=== PATIENT | female | born 1955 | race Caucasian/White ===

== ENCOUNTER 2018-09-05 15:18 | Emergency (ER) | payer BC ==
[2018-09-05] MEDS ORDERED: NS 0.9% 1000 ML** 1,000 ML IV ONE ×2 (17:15→18:18)
[2018-09-05 17:37] LABS: Urine Appearance Cloudy; Urine Bacteria Absent (Absent); Urine Bilirubin Negative (Negative); Urine Blood Negative (Negative); Urine Color Yellow; Urine Glucose Negative (Negative); Urine Ketones Negative (Negative); Urine Nitrite Negative (Negative); Urine Protein Negative (Negative); Urine Red Blood Cell Trace(0-2/hpf) (Absent); Urine Specific Gravity 1.008 (1.010-1.030); Urine Squamous Epithelial Cell Present (Absent); Urine Urobilinogen Negative (Negative); Urine White Blood Cell Trace(0-5/hpf) (Absent)
[2018-09-05 17:39] LABS: ABS Basophils 0.1 10^3/ul (0-0.2); ABS Eosinophils 0.1 10^3/ul (0-0.6); ABS Lymphocytes 1.7 10^3/ul (1.0-4.8); ABS Monocytes 0.7 10^3/ul (0-0.8); ABS Neutrophils 6.8 10^3/ul (1.5-7.7); ABS Nucleated RBC 0 10^3/ul; Eosinophil % 1.5 %; Hematocrit 35 % (33-41); Hemoglobin 11.9 g/dL (12.0-16.0); Lymphocyte % 17.6 %; Mean Corpuscular HGB Conc 34 g/dL (31-36); Mean Corpuscular Hemoglobin 32 pg (27-31); Mean Corpuscular Volume 92 fL (80-97); Mean Platelet Volume 7.6 fL (7.4-10.4); Nucleated Red Blood Cells % 0; Platelet Count 254 10^3/uL (150-450); Red Blood Count 3.75 10^6 /uL (3.70-4.87); Red Cell Distribution Width 14 % (10.5-15); White Blood Count 9.4 10^3/uL (3.5-10.8)
--- NOTE | 2018-09-05 17:39 | ED ---
GI/ HPI - HPI Summary HPI Summary: 62 year female presents with left upper quadrant pain for the past couple days. States she had a recent change in diet but then she started brat diet yesterday. With the diet change there was no improvement. she states that she has had sharp pain that radiates from left upper quadrant to her back. She denies any flank pain. No urinary symptoms. She admits to nausea but no vomiting. She tried some famotidine and had no relief of pain. She denies any dark or tarry stool or blood in her stool. She states her stools have been softer since changing her diet. she has never had this pain before. Denies any chest pain or shortness of breath. She's had a colon resection for colon cancer. She also had her appendix removed. has history of bradycardia. - History of Current Complaint Chief Complaint: EDAbdPain Time Seen by Provider: 09/05/18 16:41 Stated Complaint: ABD AND BACK PAIN PER PT Pain Intensity: 5 - Allergy/Home Medications Allergies/Adverse Reactions: Allergies Allergy/AdvReac Type Severity Reaction Status Date / Time adalimumab [From Humira] Allergy Hives/Diff. Verified 09/05/18 15:32 Breathing/I tching amlodipine Allergy Coughing Verified 09/05/18 15:32 atenolol Allergy Palpitation Verified 09/05/18 15:32 s atorvastatin Allergy Pain Verified 09/05/18 15:32 budesonide [From Symbicort] Allergy Coughing Verified 09/05/18 15:32 bupropion [From Wellbutrin] Allergy Palpitation Verified 09/05/18 15:32 s buspirone Allergy Altered Verified 09/05/18 15:32 Mental Status diltiazem [From Cardizem] Allergy Swelling Verified 09/05/18 15:32 formoterol [From Symbicort] Allergy Coughing Verified 09/05/18 15:32 furosemide [From Lasix] Allergy Unknown Verified 09/05/18 15:32 Reaction Details hydroxychloroquine Allergy Palpitation Verified 09/05/18 15:32 [From Plaquenil] s lisinopril Allergy Coughing Verified 09/05/18 15:32 metoprolol Allergy Palpitation Verified 09/05/18 15:32 s morphine Allergy Swelling Verified 09/05/18 15:32 moxifloxacin [From Avelox] Allergy Swelling Verified 09/05/18 15:32 omeprazole Allergy Pain Verified 09/05/18 15:32 rivaroxaban [From Xarelto] Allergy Unknown Verified 09/05/18 15:32 Reaction Details valsartan Allergy Unknown Verified 09/05/18 15:32 Reaction Details beta blockers Allergy Hives Uncoded 09/05/18 15:32 PMH/Surg Hx/FS Hx/Imm Hx Endocrine/Hematology History: Denies: Hx Anticoagulant Therapy Respiratory History: Reports: Hx Asthma Musculoskeletal History: Reports: Hx Rheumatoid Arthritis Infectious Disease History: No Infectious Disease History: Denies: Traveled Outside the [place] in Last 30 Days - Family History Known Family History: Positive: Hypertension - Social History Alcohol Use: None Substance Use Type: Reports: None Smoking Status (MU): Never Smoked Tobacco Review of Systems Negative: Fever Negative: Chest Pain Negative: Shortness Of Breath Positive: Abdominal Pain. Negative: Vomiting, Diarrhea, Nausea All Other Systems Reviewed And Are Negative: Yes Physical Exam Triage Information Reviewed: Yes Vital Signs On Initial Exam: Initial Vitals Temp Pulse Resp BP Pulse Ox 98.7 F 56 20 147/72 99 09/05/18 15:20 09/05/18 15:20 09/05/18 15:20 09/05/18 15:20 09/05/18 15:20 Vital Signs Reviewed: Yes Appearance: Positive: Well-Appearing Skin: Positive: Warm, Dry Head/Face: Positive: Normal Head/Face Inspection Eyes: Positive: Normal, Conjunctiva Clear ENT: Positive: Pharynx normal Respiratory/Lung Sounds: Positive: Clear to Auscultation, Breath Sounds Present Cardiovascular: Positive: Normal, RRR Abdomen Description: Positive: Soft, Other: - tenderness LUQ Bowel Sounds: Positive: Present Musculoskeletal: Positive: Normal Neurological: Positive: Normal Psychiatric: Positive: Normal Diagnostics - Vital Signs Vital Signs Temp Pulse Resp BP Pulse Ox 09/05/18 16:51 58 136/75 97 09/05/18 16:50 57 98 09/05/18 15:20 98.7 F 56 20 147/72 99 - Laboratory Lab Results: Lab Results 09/05/18 Range/Units 17:27 Urine Color Yellow Urine Appearance Cloudy Urine pH 6.0 (5-9) Ur Specific [place] 1.008 L (1.010-1.030) Urine Protein Negative (Negative) Urine Ketones Negative (Negative) Urine Blood Negative (Negative) Urine Nitrate Negative (Negative) Urine Bilirubin Negative (Negative) Urine Urobilinogen Negative (Negative) Ur Leukocyte Esterase Trace A (Negative) Urine WBC (Auto) Trace(0-5/hpf) (Absent) Urine RBC (Auto) Trace(0-2/hpf) (Absent) Ur Squamous Epith Cells Present A (Absent) Urine Bacteria Absent (Absent) Urine Glucose Negative (Negative) Result Diagrams: 09/05/18 17:30 09/05/18 17:30 Lab Statement: Any lab studies that have been ordered have been reviewed, and results considered in the medical decision making process. - CT abd CT Interpretation Completed By: Radiologist Summary of CT Findings: IMPRESSION: No evidence of acute intra-abdominal pathology. - EKG No standard instances Cardiac Rate: Bradycardia EKG Rhythm: Sinus Bradycardia Summary of EKG Findings: sinus bradycardia Re-Evaluation - Re-Evaluation First Eval Re-Evaluation Time: 20:01 Change: Improved Comment: discussed results, patient just stopped metrotrexate which may have caused a gastritis GIGU Course/Dx - Course Course Of Treatment: 62 year female presents with left upper quadrant pain for the past couple days. States she had a recent change in diet but then she started brat diet yesterday. With the diet change there was no improvement. she states that she has had sharp pain that radiates from left upper quadrant to her back. She denies any flank pain. No urinary symptoms. She admits to nausea but no vomiting. She tried some famotidine and had no relief of pain. She denies any dark or tarry stool or blood in her stool. She states her stools have been softer since changing her diet. she has never had this pain before. Denies any chest pain or shortness of breath. She's had a colon resection for colon cancer. She also had her appendix removed. On exam has tenderness epigastric. No rebound. wbc normal. crp normal. sodium and cloride low so gave fluids. urine likely contaminant. CT shows no acute finding. discussed likely has gastritis due to methotrexate such. told to continue zantac daily as patient does not want to do ompreazole. offered to add on carafate and patient declined. told to follow up with GI. patient understand and agrees with plan. - Diagnoses Differential Diagnoses - Female: Gall Bladder Disease, Gastritis, Gastroenteritis (Viral), Pyelonephritis Provider Diagnoses: Epigastric pain Discharge - Sign-Out/Discharge Documenting (check all that apply): Patient Departure Patient Received Moderate/Deep Sedation with Procedure: No - Discharge Plan Condition: Good Disposition: HOME Patient Education Materials: Diet for Stomach Ulcers and Gastritis (ED), Epigastric Pain (ED) Referrals: Pola Vargas DO [Doctor of Osteopathy] - Ino Eubanks DO [Primary Care Provider] - Additional Instructions: continue zantac twice a day Avoid acidic foods Stay upright for at least 30 mins after eating Follow up with GI Return to ED if develop any new or worsening symptoms - Billing Disposition and Condition Condition: GOOD Disposition: Home
[2018-09-05 17:53] LABS: Albumin 4.4 g/dL (3.2-5.2); Albumin/Globulin Ratio 1.6 (1-3); BUN/Creatinine Ratio 19.2 (8-20); C Reactive Protein 2.85 mg/L (<8.01); Calcium 9.3 mg/dL (8.6-10.3); EGFR African American 64.8 (>60); EGFR Non-African American 53.5 (>60); Globulin 2.7 g/dL (2-4); Potassium 4.4 mmol/L (3.5-5.0); Total Bilirubin 0.7 mg/dL (0.2-1.0); Total Protein 7.1 g/dL (6.4-8.9)
[2018-09-05] MEDS ORDERED: Iodixanol* (CONTRAST) 320 MG/ML 100 ML SDV IV ONE (18:05)
[2018-09-05 20:33] VITALS: BP 135/81
== END 2018-09-05 20:31 | disposition home or self-care (01) ==
LOC: ED 15:18 → MERGE 15:18 → ED 20:31
DX: R10.13 Epigastric pain (principal); R11.0 Nausea; R00.1 Bradycardia, unspecified; Z85.038 Personal history of other malignant neoplasm of large intestine; Z88.5 Allergy status to narcotic agent; Z88.8 Allergy status to other drugs, medicaments and biological substances
CPT/HCPCS: 36415; 74177; 80053; 81003; 81015; 82150; 83605; 83690; 83735; 84484; 85025; 86140; 87086; 93005; 96360; 96361; 99282; Q9967

== ENCOUNTER 2018-09-16 21:41 | Emergency (ER) | payer BC ==
[2018-09-16 22:32] LABS: Urine Appearance Cloudy; Urine Bacteria Absent (Absent); Urine Bilirubin Negative (Negative); Urine Blood 1+ (Negative); Urine Color Yellow; Urine Glucose Negative (Negative); Urine Ketones Negative (Negative); Urine Nitrite Negative (Negative); Urine Protein Negative (Negative); Urine Red Blood Cell Trace(0-2/hpf) (Absent); Urine Specific Gravity 1.011 (1.010-1.030); Urine Squamous Epithelial Cell Present (Absent); Urine Urobilinogen Negative (Negative); Urine White Blood Cell Trace(0-5/hpf) (Absent)
--- NOTE | 2018-09-16 23:18 | ED ---
Skin Complaint - HPI Summary HPI Summary: Patient complains of burn on back after falling asleep on heating pad, and urinary frequency and incontinence. States history of urinary incontinence, has been seen by urology and advised to do Kegel exercises, but has not done them in a while. Denies fever, cough, sore throat, CP, SOB, N/V/D, abdominal pain, change in BM. Medical history is colon cancer in remission, HTN, thyroid , RA, ostial, A. fib on anticoagulation. - History of Current Complaint Chief Complaint: EDGeneral Time Seen by Provider: 09/16/18 22:09 Stated Complaint: BACK BURN/OOZING PER PT Hx Obtained From: Patient Onset/Duration: Started Days Ago Skin Exposure Onset/Duration: Days Ago Onset Severity: Mild Current Severity: Mild Pain Intensity: 3 Pain Scale Used: 0-10 Numeric Skin Location: Discrete Aggravating Symptom(s): Touch Alleviating Symptom(s): Nothing Associated Signs & Symptoms: Negative - Allergy/Home Medications Allergies/Adverse Reactions: Allergies Allergy/AdvReac Type Severity Reaction Status Date / Time adalimumab [From Humira] Allergy Hives/Diff. Verified 09/16/18 22:13 Breathing/I tching amlodipine Allergy Coughing Verified 09/16/18 22:13 atenolol Allergy Palpitation Verified 09/16/18 22:13 s atorvastatin Allergy Pain Verified 09/16/18 22:13 budesonide [From Symbicort] Allergy Coughing Verified 09/16/18 22:13 bupropion [From Wellbutrin] Allergy Palpitation Verified 09/16/18 22:13 s buspirone Allergy Altered Verified 09/16/18 22:13 Mental Status diltiazem [From Cardizem] Allergy Swelling Verified 09/16/18 22:13 formoterol [From Symbicort] Allergy Coughing Verified 09/16/18 22:13 furosemide [From Lasix] Allergy Unknown Verified 09/16/18 22:13 Reaction Details hydroxychloroquine Allergy Palpitation Verified 09/16/18 22:13 [From Plaquenil] s lisinopril Allergy Coughing Verified 09/16/18 22:13 metoprolol Allergy Palpitation Verified 09/16/18 22:13 s morphine Allergy Swelling Verified 09/16/18 22:13 moxifloxacin [From Avelox] Allergy Swelling Verified 09/16/18 22:13 omeprazole Allergy Pain Verified 09/16/18 22:13 rivaroxaban [From Xarelto] Allergy Unknown Verified 09/16/18 22:13 Reaction Details valsartan Allergy Unknown Verified 09/16/18 22:13 Reaction Details beta blockers Allergy Hives Uncoded 09/16/18 22:13 Home Medications: Home Medications Apixaban* [Eliquis*] 5 mg PO BID 09/16/18 [History Confirmed 09/16/18] Budesonide/Formote 160/4.5(NF) [Symbicort 160/4.5 (NF)] 2 puff INH BID 09/16/18 [History Confirmed 09/16/18] Dronedarone HCl [Multaq] 400 mg PO BID 09/16/18 [History Confirmed 09/16/18] Golimumab [Simponi] 50 mg SUBCUT MONTHLY 09/16/18 [History Confirmed 09/16/18] Levothyroxine TAB* [Synthroid TAB*] 175 mcg PO DAILY 09/16/18 [History Confirmed 09/16/18] Montelukast Sodium TAB* [Singulair TAB*] 10 mg PO BEDTIME 09/16/18 [History Confirmed 09/16/18] Olmesartan Medoxomil [Benicar] 5 mg PO DAILY 09/16/18 [History Confirmed ] Omeprazole 40 mg PO BID 09/16/18 [History Confirmed 09/16/18] Pravastatin Sodium 20 mg PO DAILY 09/16/18 [History Confirmed 09/16/18] Spironolactone 50 mg PO DAILY 09/16/18 [History Confirmed 09/16/18] cloNIDine HCl [Clonidine HCl ER 0.1 MG] 0.1 mg PO DAILY 09/16/18 [History Confirmed 09/16/18] PMH/Surg Hx/FS Hx/Imm Hx Endocrine/Hematology History: Denies: Hx Anticoagulant Therapy, Hx Diabetes Cardiovascular History: Denies: Hx Hypertension, Hx Pacemaker/ICD Respiratory History: Reports: Hx Asthma History: Denies: Hx Dialysis Musculoskeletal History: Reports: Hx Rheumatoid Arthritis Sensory History: Denies: Hx Eye Prosthesis Opthamlomology History: Denies: Hx Legally Blind EENT History: Denies: Hx Deafness Neurological History: Denies: Hx Dementia Psychiatric History: Denies: Hx Autism - Cancer History Cancer Type, Location and Year: COLON - Surgical History Surgery Procedure, Year, and Place: colon resection, total left hip, total right knee - Immunization History Date of Tetanus Vaccine: utd Date of Influenza Vaccine: fall 2017 Infectious Disease History: No Infectious Disease History: Denies: Traveled Outside the [place] in Last 30 Days - Family History Known Family History: Positive: Hypertension - Social History Alcohol Use: None Substance Use Type: Reports: None Smoking Status (MU): Never Smoked Tobacco Review of Systems Constitutional: Negative Eyes: Negative ENT: Negative Cardiovascular: Negative Respiratory: Negative Gastrointestinal: Negative Positive: frequency, incontinence Musculoskeletal: Negative Skin: Other Neurological: Negative Psychological: Normal All Other Systems Reviewed And Are Negative: Yes Physical Exam - Summary Physical Exam Summary: Superficial burn in central upper back 3 cm x 3 cm clean dry and intact with mild erythema at the edges. No indication of infection, purulent drainage. Triage Information Reviewed: Yes Vital Signs On Initial Exam: Initial Vitals Temp Pulse Resp BP Pulse Ox 98.3 F 58 16 127/67 100 09/16/18 21:42 09/16/18 21:42 09/16/18 21:42 09/16/18 21:42 09/16/18 21:42 Vital Signs Reviewed: Yes Appearance: Positive: Well-Appearing Skin: Positive: Warm Head/Face: Positive: Normal Head/Face Inspection Eyes: Positive: Normal Neck: Positive: Supple Respiratory/Lung Sounds: Positive: Clear to Auscultation Cardiovascular: Positive: Normal Abdomen Description: Positive: Nontender Musculoskeletal: Positive: Normal Neurological: Positive: Normal Psychiatric: Positive: Normal AVPU Assessment: Alert - Kendal Coma Scale Best Eye Response: 4 - Spontaneous Best Motor Response: 6 - Obeys Commands Best Verbal Response: 5 - Oriented Coma Scale Total: 15 Diagnostics - Vital Signs Vital Signs Temp Pulse Resp BP Pulse Ox 09/16/18 21:42 98.3 F 58 16 127/67 100 - Laboratory Lab Results: Lab Results 09/16/18 Range/Units 22:18 Urine Color Yellow Urine Appearance Cloudy Urine pH 5.0 (5-9) Ur Specific [place] 1.011 (1.010-1.030) Urine Protein Negative (Negative) Urine Ketones Negative (Negative) Urine Blood 1+ A (Negative) Urine Nitrate Negative (Negative) Urine Bilirubin Negative (Negative) Urine Urobilinogen Negative (Negative) Ur Leukocyte Esterase Negative (Negative) Urine WBC (Auto) Trace(0-5/hpf) (Absent) Urine RBC (Auto) Trace(0-2/hpf) (Absent) Ur Squamous Epith Cells Present A (Absent) Urine Bacteria Absent (Absent) Urine Glucose Negative (Negative) Lab Statement: Any lab studies that have been ordered have been reviewed, and results considered in the medical decision making process. Course/Dx - Course Course Of Treatment: Patient complains of burn on back after falling asleep on heating pad, and urinary frequency and incontinence. States history of urinary incontinence, has been seen by urology and advised to do Kegel exercises, but has not done them in a while. Denies fever, cough, sore throat, CP, SOB, N/V/D , abdominal pain, change in BM. Medical history is colon cancer in remission, HTN, thyroid, RA, ostial, A. fib on anticoagulation. Physical exam:Superficial burn in central upper back 3 cm x 3 cm clean dry and intact with mild erythema at the edges. No indication of infection, purulent drainage. Vital signs within normal limits. UA negative. Wound was dressed and patient was advised how to do so for herself. Patient advised to follow-up with Dr. Walker urology for stress incontinence. - Diagnoses Provider Diagnoses: Burn, Stress incontinence Discharge - Sign-Out/Discharge Documenting (check all that apply): Patient Departure Patient Received Moderate/Deep Sedation with Procedure: No - Discharge Plan Condition: Stable Disposition: HOME Patient Education Materials: Urinary Incontinence (ED), Kegel Exercises for Women (DC), Superficial Burn (ED) Referrals: Ino Eubanks DO [Primary Care Provider] - Justin Walker MD [Medical Doctor] - Additional Instructions: Place antibiotic ointment and nonstick pad on burn daily. Keep clean and dry and intact until it heals. For stress incontinence follow-up with urology Dr. Walker for further evaluation. Return to the ED for any new or worsening symptoms. - Billing Disposition and Condition Condition: STABLE Disposition: Home
[2018-09-16 23:34] VITALS: BP 125/75
== END 2018-09-16 23:32 | disposition home or self-care (01) ==
LOC: ED 21:41
DX: T21.03XA Burn of unspecified degree of upper back, initial encounter (principal); T31.0 Burns involving less than 10% of body surface; Y65.8 Other specified misadventures during surgical and medical care; Y74.1 Therapeutic (nonsurgical) and rehabilitative general hospital and personal-use devices associated with adverse incidents; Y92.019 Unspecified place in single-family (private) house as the place of occurrence of the external cause; N39.3 Stress incontinence (female) (male); I10 Essential (primary) hypertension; M06.9 Rheumatoid arthritis, unspecified; I48.91 Unspecified atrial fibrillation; Z79.01 Long term (current) use of anticoagulants
CPT/HCPCS: 16020; 81003; 81015; 87086; 99282

== ENCOUNTER 2019-04-02 14:55 | Emergency (ER) | payer BC ==
--- NOTE | 2019-04-02 15:41 | ED ---
GI/ HPI - HPI Summary HPI Summary: Patient complains of sudden onset profuse vaginal bleeding 1 today. States blood was dark brown.. Mild bleeding currently. States history of intermittent bilateral lower pelvic pain 1 month. Pain was worse with bleeding today. Denies fever, cough, sore throat, CP, SOB, N/V/D, change in urine, change in BM, vaginal discharge or pain. Medical history is fibroids, A. fib. Patient on Eliquis. Abdominal surgical history is D&C, appendectomy. - History of Current Complaint Chief Complaint: EDVaginalBleeding Time Seen by Provider: 04/02/19 15:04 Stated Complaint: VAGINAL BLEED PER EMS Hx Obtained From: Patient Onset/Duration: Started Hours Ago Timing: Intermittent Severity: Moderate Current Severity: Severe Vaginal Bleeding Description: Brownish-Red Pain Intensity: 10 Location of Pain: RLQ, LLQ, Suprapubic Pain Characteristics: Cramping Associated Signs and Symptoms: Positive: Abdominal Pain Additional Signs & Symptoms: Positive: Vaginal Bleeding Aggravating Factor(s): Nothing Alleviating Factor(s): Nothing - Allergy/Home Medications Allergies/Adverse Reactions: Allergies Allergy/AdvReac Type Severity Reaction Status Date / Time adalimumab [From Humira] Allergy Hives/Diff. Verified 09/16/18 22:13 Breathing/I tching amlodipine Allergy Coughing Verified 09/16/18 22:13 atenolol Allergy Palpitation Verified 09/16/18 22:13 s atorvastatin Allergy Pain Verified 09/16/18 22:13 buspirone Allergy Altered Verified 09/16/18 22:13 Mental Status diltiazem [From Cardizem] Allergy Swelling Verified 09/16/18 22:13 hydroxychloroquine Allergy Palpitation Verified 09/16/18 22:13 [From Plaquenil] s lisinopril Allergy Coughing Verified 09/16/18 22:13 metoprolol Allergy Palpitation Verified 09/16/18 22:13 s morphine Allergy Swelling Verified 09/16/18 22:13 moxifloxacin [From Avelox] Allergy Swelling Verified 09/16/18 22:13 valsartan Allergy Unknown Verified 09/16/18 22:13 Reaction Details beta blockers Allergy Hives Uncoded 09/16/18 22:13 Home Medications: Home Medications Albuterol inh POWDER (NF) [Proair Respiclick] 1 puff INH DAILY 04/02/19 [ History Confirmed 04/02/19] Budesonide/Formote 160/4.5(NF) [Symbicort 160/4.5 (NF)] 2 puff INH BID 04/02/19 [History Confirmed 04/02/19] Cholecalciferol CAP/TAB(NF) [Vitamin D3 CAP/TAB (NF)] 5,000 unit PO DAILY [History Confirmed 04/02/19] Cyanocobalamin (Vitamin B-12) [Nascobal] 1 each PO DAILY 04/02/19 [History Confirmed 04/02/19] Dronedarone TAB* [Multaq TAB*] 400 mg PO BID 04/02/19 [History Confirmed ] Estradiol VAG CM (NF) [Estrace VAG CM (NF)] 1 applic VAGINAL DAILY 04/02/19 [ History Confirmed 04/02/19] Ranitidine TAB (NF) [Zantac TAB (NF)] 150 mg PO BID 04/02/19 [History Confirmed 04/02/19] PMH/Surg Hx/FS Hx/Imm Hx Endocrine/Hematology History: Denies: Hx Anticoagulant Therapy, Hx Diabetes Cardiovascular History: Denies: Hx Hypertension, Hx Pacemaker/ICD Respiratory History: Reports: Hx Asthma History: Denies: Hx Dialysis Musculoskeletal History: Reports: Hx Rheumatoid Arthritis Sensory History: Denies: Hx Eye Prosthesis, Hx Legally Blind, Hx Deafness Opthamlomology History: Denies: Hx Eye Prosthesis, Hx Legally Blind EENT History: Denies: Hx Hearing Aid Neurological History: Denies: Hx Dementia Psychiatric History: Denies: Hx Autism - Cancer History Cancer Type, Location and Year: COLON Hx Chemotherapy: Yes - COLON CA Hx Radiation Therapy: No - Surgical History Surgery Procedure, Year, and Place: colon resection, total left hip, total right knee - Immunization History Date of Tetanus Vaccine: utd Date of Influenza Vaccine: fall 2017 Infectious Disease History: No Infectious Disease History: Denies: Traveled Outside the [place] in Last 30 Days - Family History Known Family History: Positive: Hypertension - Social History Alcohol Use: None Substance Use Type: Reports: None Smoking Status (MU): Never Smoked Tobacco Review of Systems Constitutional: Negative Eyes: Negative ENT: Negative Cardiovascular: Negative Respiratory: Negative Positive: Abdominal Pain Genitourinary: Negative Musculoskeletal: Negative Skin: Negative Neurological: Negative Psychological: Normal All Other Systems Reviewed And Are Negative: Yes Physical Exam - Summary Physical Exam Summary: tender to palpation in bilateral lower quadrants and suprapubically. Abdominal exam otherwise unremarkable. Triage Information Reviewed: Yes Vital Signs On Initial Exam: Initial Vitals Temp Pulse Resp BP Pulse Ox 98.4 F 55 18 169/82 100 04/02/19 14:55 04/02/19 14:55 04/02/19 14:55 04/02/19 14:55 04/02/19 14:55 Vital Signs Reviewed: Yes Appearance: Positive: Well-Appearing Skin: Positive: Warm Head/Face: Positive: Normal Head/Face Inspection Eyes: Positive: Normal Neck: Positive: Supple Respiratory/Lung Sounds: Positive: Clear to Auscultation Cardiovascular: Positive: Normal Abdomen Description: Positive: Other: Musculoskeletal: Positive: Normal Neurological: Positive: Normal Psychiatric: Positive: Normal AVPU Assessment: Alert - [place] Coma Scale Best Eye Response: 4 - Spontaneous Best Motor Response: 6 - Obeys Commands Best Verbal Response: 5 - Oriented Coma Scale Total: 15 Procedures - Sedation Patient Received Moderate/Deep Sedation with Procedure: No Diagnostics - Vital Signs Vital Signs Temp Pulse Resp BP Pulse Ox 04/02/19 14:55 98.4 F 55 18 169/82 100 - Laboratory Result Diagrams: 04/02/19 15:48 04/02/19 15:48 Lab Statement: Any lab studies that have been ordered have been reviewed, and results considered in the medical decision making process. GIGU Course/Dx - Course Course Of Treatment: Patient complains of sudden onset profuse vaginal bleeding 1 today. States blood was dark brown.. Mild bleeding currently. States history of intermittent bilateral lower pelvic pain 1 month. Pain was worse with bleeding today. Denies fever, cough, sore throat, CP, SOB, N/V/D, change in urine, change in BM, vaginal discharge or pain. Medical history is fibroids , A. fib. Patient on Eliquis. Abdominal surgical history is D&C, appendectomy. Vital signs within normal limits. Labs unremarkable. UA possible UTI. Cultures pending. Transvaginal ultrasound positive for large complex mass within the endometrial cavity recommending further clinical evaluation to assess for endometrial hyperplasia or carcinoma. Hyper echoic mass in the fundus of the uterus suggestive of a leiomyoma. Status post right oophorectomy. Discussed patient with on-call [employer] Dr. Lilly who recommended patient call clinic tomorrow for follow-up. - Diagnoses Provider Diagnoses: Vaginal bleeding, Uterine mass Discharge ED - Sign-Out/Discharge Documenting (check all that apply): Patient Departure - Discharge Plan Condition: Stable Disposition: HOME Patient Education Materials: Dysfunctional Uterine Bleeding (ED) Referrals: Ashanti Tsai MD [Primary Care Provider] - Arlene Lilly MD [Medical Doctor] - Additional Instructions: Call [employer] Dr. Lilly tomorrow morning to arrange for follow-up appointment. Return to the ED in the meantime for any worsening symptoms. - Billing Disposition and Condition Condition: STABLE Disposition: Home
[2019-04-02 16:06] LABS: ABS Basophils 0.1 10^3/ul (0-0.2); ABS Eosinophils 0.2 10^3/ul (0-0.6); ABS Lymphocytes 1.4 10^3/ul (1.0-4.8); ABS Monocytes 0.9 10^3/ul (0-0.8); ABS Neutrophils 7.5 10^3/ul (1.5-7.7); Eosinophil % 1.5 %; Hematocrit 33 % (35-47); Hemoglobin 11.1 g/dL (12.0-16.0); Lymphocyte % 13.9 %; Mean Corpuscular HGB Conc 34 g/dL (31-36); Mean Corpuscular Hemoglobin 31 pg (27-31); Mean Corpuscular Volume 91 fL (80-97); Mean Platelet Volume 7.6 fL (7.4-10.4); Nucleated Red Blood Cells % 0.1; Platelet Count 256 10^3/uL (150-450); Red Blood Count 3.57 10^6 /uL (3.70-4.87); Red Cell Distribution Width 14 % (10-15)
--- OUTSIDE RECORDS SUMMARY | 2019-04-02 16:37 | XMS REPORT | Summary of Care ---
:1955 Author Organization [facility] Address [address] [address] Care Team Providers Name Role Phone Ashanti Tsai MD Primary Care Provider Vanessa Farooq MD Unavailable Reason for Referral Durable Medical Equipment (Routine) Status Reason Specialty Diagnoses / Referred By Referred To Procedures Contact Contact Pending Review Diagnoses CHARLENE (obstructive sleep apnea) Stu Arriaga MD [address] [place] [address] Reason for Visit Reason Comments New Patient ASTHMA, PULMONARY NODULE, CHARLENE, CT CHEST 10/10/18 Refer to Department Only (Routine) Status Reason Specialty Diagnoses / Referred By Referred To Procedures Contact Contact Pending Review PULMONARY / Diagnoses Asthma, unspecified asthma severity, unspecified whether complicated, unspecified whether persistent Hx of solitary pulmonary nodule CHARLENE (obstructive sleep apnea) Ashanti Tsai MD [address] [place] [address] Encounter Details Date Type Department Care Team Description 03/08/2019 Office Visit [facility] Stu Arriaga, Moderate persistent asthma without complication (Primary Dx) ; [address] MD Hx of solitary pulmonary nodule; [place] [address] [address] CHARLENE (obstructive sleep apnea) [phone] [place] [address] [phone] Allergies Active Allergy Reactions Severity Noted Date Comments Beta Adrenergic Blockers Respiratory Reaction 11/23/2017 Calcium Channel Blockers Rash 11/23/2017 Hydrochlorothiazide Other 09/20/2018 Hyponatremia Humira Swelling 12/14/2017 Breathing difficulty Lisinopril Respiratory Reaction 11/23/2017 Morphine Hives 11/23/2017 Metoprolol Succinate Er Unknown Reaction 12/12/2017 Tramadol Hives 12/12/2017 documented as of this encounter (statuses as of 03/08/2019) Medications Medication Sig Dispensed Refills Start Date End Date Status albuterol HFA (PROAIR Take 2 Puffs by 3 Inhaler 0 08/15/2018 Active HFA) 108 (90 Base) inhalation EVERY MCG/ACT Inhalation Aero FOUR HOURS Soln NEEDED (as needed to SOB). budesonide-formoterol Take 2 INHL by 3 Inhaler 1 09/19/2018 Active fumarate (SYMBICORT) inhalation TWICE 160-4.5 MCG/ACT DAILY. Inhalation Aerosol Cholecalciferol Take 1 Cap by 0 Active (VITAMIN D3) 1000 units mouth DAILY. Oral Cap torsemide (DEMADEX) 20 Take 1 Tab by 30 Tab 5 11/03/2018 Active MG Oral Tab mouth DAILY NEEDED (Leg swelling). ELIQUIS 5 MG Oral TAKE ONE TABLET 180 Tab 3 11/06/2018 Active TabIndications: BY MOUTH TWICE Paroxysmal atrial DAILY fibrillation (HCC) levothyroxine Take 1 Tab by 90 Tab 1 11/28/2018 Active (SYNTHROID) 175 MCG mouth BEFORE Oral Tab BREAKFAST. VON SYNTHROID 175 mg pravastatin (PRAVACHOL) Take 20 mg by 90 Tab 1 11/28/2018 Active 20 MG Oral Tab mouth DAILY. montelukast (SINGULAIR) Take 1 Tab by 90 Tab 2 11/28/2018 Active 10 MG Oral mouth DAILY. TabIndications: Asthma, unspecified asthma severity, unspecified whether complicated, unspecified whether persistent spironolactone Take 1 Tab by 90 Tab 1 11/28/2018 Active (ALDACTONE) 25 MG Oral mouth DAILY. TabIndications: Hypertension, unspecified type Additional information Patient taking differently: 12.5 mg Oral DAILY, Reported on 03/08/2019 12:21 PM Olmesartan Medoxomil 20 MG Oral Take 2 Tabs by mouth 270 Tab 1 12/01/2018 Active Tab DAILY. Ranitidine 150 MG Oral Take 1 Cap by mouth 180 Cap 3 12/01/2018 Active CapIndications: Gastroesophageal TWICE DAILY. reflux disease, esophagitis presence not specified verapamil (CALAN-SR, ISOPTIN SR) Take 1 Tab by mouth 30 Tab 11 01/22/2019 Active 120 MG Oral Tab CRIndications: DAILY. Paroxysmal atrial fibrillation (HCC) dronedarone (MULTAQ) 400 MG Oral Take 400 mg by mouth 0 Active Tab TWO TIMES DAILY WITH MEALS. documented as of this encounter (statuses as of 03/08/2019) Active Problems Problem Noted Date Current use of client resolution specialist anticoagulation 03/08/2019 Acute kidney injury 11/28/2018 Other specified hypothyroidism 11/28/2018 Tricuspid valve disorder 01/31/2018 History of colonic polyps 12/12/2017 Asthma 12/12/2017 Paroxysmal atrial fibrillation 11/23/2017 History of colon cancer in adulthood 11/23/2017 Morbid obesity 11/23/2017 CHARLENE (obstructive sleep apnea) 11/23/2017 Rheumatoid arthritis 11/23/2017 Essential hypertension 11/23/2017 History of total right knee replacement History of total left hip arthroplasty PFO (patent foramen ovale) Thoracoabdominal aortic aneurysm (TAAA) documented as of this encounter (statuses as of 03/08/2019) Immunizations Name Administration Dates Next Due Influenza (IM) Preservative Free 03/08/2019 Influenza (IM) W/Pres 04/13/2017, 04/20/2016 Influenza Vaccine Whole 04/12/2018 Influenza Virus Vaccine - Whole 04/12/2018 Influenza Virus Vaccine w/Pres 6-35 months 03/06/2015 Pneumococcal Conjugate(13 Valent) 09/05/2014 TDAP Vaccine 03/08/2019 ZOSTER (ZOSTAVAX) VACCINE 07/22/2015 documented as of this encounter Social History Tobacco Use Types Packs/Day Years Used Date Never Smoker Smokeless Tobacco: Never Used Comments: second hand smoke exposure Alcohol Use Drinks/Week oz/Week Comments No Sex Assigned at Date Recorded Not on file Job Start Date Occupation Industry Not on file Not on file Not on file Travel History Travel Start Travel End No recent travel history available. documented as of this encounter Last Filed Vital Signs Vital Sign Reading Time Taken Comments Blood Pressure 124/70 03/08/2019 3:00 PM patient reported EDT Pulse 65 03/08/2019 3:00 PM EDT Temperature - - Respiratory Rate 18 03/08/2019 3:00 PM EDT Oxygen Saturation 95% 03/08/2019 3:00 PM room air EDT Inhaled Oxygen Concentration - - Weight 131.5 kg (290 lb) 03/08/2019 3:00 PM EDT Height 160 cm (5' 3") 03/08/2019 3:00 PM EDT Body Mass Index 51.37 03/08/2019 3:00 PM EDT documented in this encounter Progress Notes Stu Arriaga MD - 03/08/2019 2:45 PM EDT Name: Melissa Ta : 1955 Date of Service: 03/08/2019 Referring Practioner: Ashanti Tsai Primary Care Provider: Ashanti Tsai History of Present Illness Melissa Ta is a 63-y.o. female who presents for a consultation regarding her history of obstructive sleep apnea as well as asthma. As far as her asthma, the patient did have a positive methacholine challenge test. Is presently on Symbicort. She feels short of breath but the description of her shortness of breath is more consistent with obesity as well as conditioning. She does not fit bit and averages about 5000 steps a day, which is low. She denies any fever or chills. She does have problemwith her knees. The patient denies any chest pain, abdominal pain, melena, hematuria,rash or swelling of any joints. As far as his sleep apnea, her sleep study shows that the patient has REM induced obstructive sleep apnea. Her overall AHI was around 30 but it was close to normal when she was in non-REM sleep and markedly elevated when she was in rem sleep associated with significant oxygen desaturation. She is presently on a CPAP of 11 cm of water. She has had the machine for about a year. She says she is very compliant with it wears it every night. However, she still feeling sleepy during the day. Allergies Allergen Reactions Beta Adrenergic Blockers Respiratory Reaction Calcium Channel Blockers Rash Hctz [Hydrochlorothiazide] Other Hyponatremia Humira Swelling Breathing difficulty Lisinopril Respiratory Reaction Morphine Hives Toprol Xl [Metoprolol Succinate Er] Unknown Reaction Tramadol Hives Social History Socioeconomic History Marital status: Spouse name: Not on file Number of children: Not on file Years of education: Not on file Highest education level: Not on file Occupational History Not on file Social Needs Financial resource strain: Not on file Food insecurity: Worry: Not on file Inability: Not on file Transportation needs: Medical: Not on file Non-medical: Not on file Tobacco Use Smoking status: Never Smoker Smokeless tobacco: Never Used Tobacco comment: second hand smoke exposure Substance and Sexual Activity Alcohol use: No Drug use: No Sexual activity: Not Currently Lifestyle Physical activity: Days per week: Not on file Minutes per session: Not on file Stress: Not on file Relationships Social connections: Talks on phone: Not on file Gets together: Not on file Attends anabaptist service: Not on file Active member of club or organization: Not on file Attends meetings of clubs or organizations: Not on file Relationship status: Not on file Intimate partner violence: Fear of current or ex partner: Not on file Emotionally abused: Not on file Physically abused: Not on file Forced sexual activity: Not on file Other Topics Concern Not on file Social History Narrative 1 child: 32 year old adult female Living alone Current Outpatient Medications Medication Sig albuterol HFA (PROAIR HFA) 108 (90 Base) MCG/ACT Inhalation Aero Soln Take 2 Puffs by inhalation EVERY FOUR HOURS NEEDED (as needed to SOB). budesonide-formoterol fumarate (SYMBICORT) 160-4.5 MCG/ACT Inhalation Aerosol Take 2 INHL by inhalation TWICE DAILY. Cholecalciferol (VITAMIN D3) 1000 units Oral Cap Take 1 Cap by mouth DAILY. dronedarone (MULTAQ) 400 MG Oral Tab Take 400 mg by mouth TWO TIMES DAILY WITH MEALS. ELIQUIS 5 MG Oral Tab TAKE ONE TABLET BY MOUTH TWICE DAILY levothyroxine (SYNTHROID) 175 MCG Oral Tab Take 1 Tab by mouth BEFORE BREAKFAST. VON SYNTHROID 175 mg montelukast (SINGULAIR) 10 MG Oral Tab Take 1 Tab by mouth DAILY. Olmesartan Medoxomil 20 MG Oral Tab Take 2 Tabs by mouth DAILY. pravastatin (PRAVACHOL) 20 MG Oral Tab Take 20 mg by mouth DAILY. Ranitidine 150 MG Oral Cap Take 1 Cap by mouth TWICE DAILY. spironolactone (ALDACTONE) 25 MG Oral Tab Take 1 Tab by mouth DAILY. ( Patient taking differently: Take 12.5 mg by mouth DAILY.) torsemide (DEMADEX) 20 MG Oral Tab Take 1 Tab by mouth DAILY NEEDED ( Leg swelling). verapamil (CALAN-SR, ISOPTIN SR) 120 MG Oral Tab CR Take 1 Tab by mouth DAILY. No current facility-administered medications for this visit. Past Medical History: Diagnosis Date Asthma Colon cancer (HCC) 11/23/20172001. right colectomy. chemo after that. Essential hypertension 11/23/2017 History of total left hip arthroplasty History of total right knee replacement Lymphedema bilateral LE, has lymphedema machine at home Morbid obesity ([facility]) 11/23/2017 CHARLENE (obstructive sleep apnea) 11/23/2017 on cpap Paroxysmal atrial fibrillation (HCC) 11/23/2017 PFO (patent foramen ovale) Rheumatoid arthritis ([facility]) 11/23/2017 Thoracoabdominal aortic aneurysm (TAAA) ([facility]) [address] [facility] 2013 but not mentioned on CT at [facility] 09/2018 Past Surgical History: Procedure Laterality Date APPENDECTOMY COLONOSCOPY N/A 02/16/2018 Procedure: COLONOSCOPY; Surgeon: Rober Victoria DO; Location: [facility] MAIN OR DISCECTOMY, LUMBAR 1L L4-L5; age 23 EGD N/A 02/16/2018 Procedure: ENDOSCOPY UPPER GI; Surgeon: Rober Victoria DO; Location: [facility] MAIN OR UT REMOVAL OF OVARY/TUBE(S) Right 2001 UT TOTAL HIP ARTHROPLASTY 2011 [facility] TOTAL KNEE ARTHROPLASTY 03/2015 RIGHT HEMICOLECTOMY 2002 TONSILLECTOMY age 9 Family History Problem Relation Age of Onset Dementia Mother Lewy body Parkinson's Mother Seizures Father Stroke Father Heart Disease Father Aneurysm Father thoracic, 5 cm Acne Father REVIEW OF SYSTEMS: All remaining review of systems was negative except for as noted in the history of present illness/subjective. PHYSICAL EXAMINATION: VITALS: Vitals: 03/08/19 1500 BP: 124/70 Pulse: 65 Resp: 18 SpO2: 95% Weight: 290 lb (131.5 kg) Height: 5' 3" (1.6 m) GENERAL: alert, oriented, no acute distress, morbidly obese HEENT: sclera normal, anicteric, mucous membrane moist, conjunctivitis pink and pale, normal dentition, pupils equal, round, reactive to light, extraocular movement intact, posterior pharynx: crowded, tongue midline , dry mucous membranes, Mallampati Score: Class IV: hard palate only. NECK: no mass, no adenopathy, no thyromegaly, supple, thyroid: not enlarged, symmetric, no tenderness/mass/nodules, no jugular venous distention. LUNGS: clear to auscultation bilaterally. HEART: regular rhythm, no murmurs, no gallops, no rubs S1: normal S2: normal. ABDOMEN: soft, non tender, without masses or organomegaly. EXTREMITIES: no clubbing, no cyanosis, 1-2+ edema of the lower extremities. NEUROLOGICAL: alert and oriented x3 gait: wide based. Impression/Plan: 1. Mild to moderate persistent asthma. For now, would continue with Symbicort twice a day since weare in the middle of . If the patient still feels well in April, I would do a pulmonary function test pre-and post at the [facility] in [place] and, if the point function test was within normal limits, I would probably change her Symbicort to either Asmanex or Pulmicort. 2. Shortness of breath. I suspect that her shortness of breath is mostly due to obesity and conditioning. I told the patient to try to increase the number of steps she takes on a daily basis. 3. Severe, REM induced, obstructive sleep apnea. The patient really should be on an auto CPAP since her pressure requirement will change according to the stages of sleep. I suspect that she does have an auto CPAP but it is just set at one pressure. I will contact her medical collections specialist supplier to seeif this is the case. If this is the case, the patient will be put on a variable pressure from 10-20. Patient will come back for follow-up in 6 months Author: Stu Arriaga MD 15:36 03/08/2019 documented in this encounter Plan of Treatment Date Type Specialty Care Team Description 05/22/2019 Office Visit Family Practice Ashanti Tsai MD [address] [place] [id number] 07/02/2019 Office Visit Cardiology Jim Venegas MD [facility] [place] [address] 09/06/2019 Office Visit Pulmonary Stu Arriaga MD [address] [place] [address] [place] [address] Name Type Priority Associated Diagnoses Order Schedule DME EQUIPMENT GENERIC Referral Routine CHARLENE (obstructive sleep Ordered: (AMB) apnea) Health Maintenance Due Date Last Done Comments PNEUMOCOCCAL 0-64 YRS (1 of 1960 3 - PCV13) ZOSTER IMMUNIZATION SERIES 09/16/2015 (1 of 2) MAMMOGRAM (SCREENING) 11/18/2018 11/18/2017 INFLUENZA VACCINE (#1) 2019 04/12/2018 DIABETES SCREENING 11/29/2019 11/28/2018, 10/31/2018, 10/09/2018, Additional history exists LIPID DISORDER SCREENING 11/29/2019 11/28/2018, 09/19/2018, 01/27/2018 PAP SMEAR 12/24/2020 12/24/2017 COLONOSCOPY SCREENING 02/16/2021 02/16/2018, 02/16/2018, 12/03/2014 DEPRESSION SCREENING 04/23/2021 Postponed from 1966 (Other) HEPATITIS C SCREENING 01/22/2022 Postponed from 1994 (Other) HIV SCREENING 01/22/2022 Postponed from 1969 (Patient refused) HPV IMMUNIZATION SERIES Aged Out No longer eligible based on patient's age to complete this topic MENINGOCOCCAL VACCINE IMM Aged Out No longer eligible based on patient's age to complete this topic documented as of this encounter Goals Goal Patient Goal Associated Recent Patient-Stated? Author Type Problems Progress Blood Pressure Blood Pressure 124/70 No Ino Eubanks < 150/90 (03/08/2019 DO [place] 3:00 PM EDT) Note: This is an individualized treatment (blood pressure) goal for Melissa Ta: Displayed above (on the left) is your goal for blood pressure control. Your most recent blood pressure is also shown above, on the right. You should try to achieve blood pressures that are lower than your goal listed above (on the left). Weight increase vs. 18 CHF 21 (03/08/2019 3:00 PM No Ashanti Tsai mo min (lbs) < 5 EDT) Note: This is an individualized treatment (congestive heart failure, CHF) goal for Melissa Ta: Displayed above (on the right) is how many pounds you are in excess of your lowest weight over the past 18 months. Note that lower numbers are better. Excessive weight gain often indicates fluid reten tion and worsening heart failure. You should contact your doctor immediately if the above number is too high (above your goal, the number on the left). Depression screen (PHQ-9) total score < 5 Depression No Evie Royal PA-C Note: This is an individualized treatment (depression) goal for Melissa Ta: Displayed above is your goal for a depression screening (PHQ-9) score that would indicate good control of your depression. Weight loss vs. 18 mo Lifestyle 8.9 (03/08/2019 3:00 PM EDT) No Ino Eubanks DO max (lbs) >= 10 Note: This is an individualized lifestyle goal for Melissa Ta: Your body mass index (BMI) is more than 30. You should lose weight. A reasonable starting goal is to lose 10 pounds. Displayed above is how many pounds you have lost thus far towards your 10 pound weight loss goal. Keep a regular sleep schedule Lifestyle No Evie Royal PA-C Note: This is an individualized lifestyle goal for Melissa Ta: Please maintain a regular sleep schedule. This may help with some symptoms of depression. Consume a [id number] diet Lifestyle No Ashanti Tsai MD Note: This is an individualized lifestyle goal for Melissa Ta: Please do not add additional salt to your food. Additional salt may lead to fluid retention and worsen your congestive heart failure. Take all prescribed medications as directed Self-management Ino Burton DO Note: This is an individualized self-management goal for Melissa Ta: Please take all prescribed medications as directed. 1. Do not skip doses. If you cannot afford your medications, talk with your doctor. 2. Use a pill reminder system such as a pill box if needed. Your pharmacist can help you with this. 3. Contact your Pharmacy 5 days before your medication runs out. If you cannot take your medications for any reasons, talk with your doctor. 4. Please bring all of your medication bottles and inhalers (or a list of all your medications/inhalers) with you to every visit. Potential barriers to meeting all of your care plan goals will continue to be addressed on an ongoing basis. Check your weight daily Self-management No Ashanti Tsai MD Note: This is an individualized self-management goal for Melissa Ta: Please check your weight daily. Refer to the accompanying CHF treatment goal and call your doctor immediately for further instructions on how to respond to unexpected weight gain. documented as of this encounter Results Not on filedocumented in this encounter Visit Diagnoses Diagnosis Moderate persistent asthma without complication - Primary Unspecified asthma Hx of solitary pulmonary nodule Personal history of other diseases of respiratory system CHARLENE (obstructive sleep apnea) Obstructive sleep apnea (adult) (pediatric) documented in this encounter Insurance Payer Benefit Plan / Subscriber ID Effective Dates Phone Address Type Group [employer] BLUE xxxxxxxxxxxx 2017-Present [employer] xxxxxxxxxxxx 2018-Present [employer] documented as of this encounter
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
[2019-04-02 16:52] LABS: INR 1.39 (0.82-1.09)
[2019-04-02 17:21] LABS: Albumin 3.9 g/dL (3.2-5.2); Albumin/Globulin Ratio 1.4 (1-3); BUN/Creatinine Ratio 23.4 (8-20); C Reactive Protein 9.59 mg/L (<8.01); EGFR African American 72.5 (>60); Globulin 2.7 g/dL (2-4); Potassium 4.3 mmol/L (3.5-5.0); Total Bilirubin 0.5 mg/dL (0.2-1.0); Total Protein 6.6 g/dL (6.4-8.9)
[2019-04-02 17:46] LABS: Urine Appearance Cloudy; Urine Bacteria Absent (Absent); Urine Bilirubin Negative (Negative); Urine Blood 3+ (Negative); Urine Color Yellow; Urine Glucose Negative (Negative); Urine Ketones Negative (Negative); Urine Nitrite Negative (Negative); Urine Protein Negative (Negative); Urine Red Blood Cell 1+(3-5/hpf) (Absent); Urine Specific Gravity 1.005 (1.010-1.030); Urine Squamous Epithelial Cell Present (Absent); Urine Urobilinogen Negative (Negative); Urine White Blood Cell 1+(6-10/hpf) (Absent)
[2019-04-02 18:19] VITALS: BP 160/94
[2019-04-03 13:05] LABS: Chlamydia trachomatis NAA Negative (Negative); Neisseria gonorrhoeae (GC) NAA Negative (Negative)
== END 2019-04-02 18:18 | disposition home or self-care (01) ==
LOC: ED 14:55
DX: N93.9 Abnormal uterine and vaginal bleeding, unspecified (principal); D25.9 Leiomyoma of uterus, unspecified; I48.91 Unspecified atrial fibrillation; J45.909 Unspecified asthma, uncomplicated; M06.9 Rheumatoid arthritis, unspecified; Z85.038 Personal history of other malignant neoplasm of large intestine; Z96.642 Presence of left artificial hip joint; Z96.651 Presence of right artificial knee joint; Z90.721 Acquired absence of ovaries, unilateral; Z79.01 Long term (current) use of anticoagulants; Z79.899 Other long term (current) drug therapy; Z79.890 Hormone replacement therapy; Z88.5 Allergy status to narcotic agent; Z88.8 Allergy status to other drugs, medicaments and biological substances
CPT/HCPCS: 36415; 76830; 80053; 81003; 81015; 85025; 85610; 86140; 87086; 87491; 87591; 99283

== ENCOUNTER 2022-05-23 15:13 | Inpatient (IN) ==
[2022-05-23 17:05] LABS: ABS Eosinophils 0.3 10^3/ul (0-0.6); ABS Lymphocytes 0.4 10^3/ul (1.0-4.8); ABS Monocytes 0.5 10^3/ul (0-0.8); ABS Neutrophils 2.7 10^3/ul (1.5-7.7); Eosinophil % 7.6 %; Hematocrit 31 % (35-47); Hemoglobin 10.1 g/dL (12.0-16.0); Mean Corpuscular HGB Conc 33 g/dL (31-36); Mean Corpuscular Hemoglobin 29 pg (27-31); Mean Corpuscular Volume 89 fL (80-97); Platelet Count 118 10^3/uL (150-450); Red Blood Count 3.46 10^6 /uL (3.70-4.87); Red Cell Distribution Width 16 % (10-15); White Blood Count 3.9 10^3/uL (3.5-10.8)
[2022-05-23] MEDS ORDERED: Levalbuterol 1.25MG/0.5ML NEB.SOL INH ONE (17:18)
[2022-05-23 17:39] LABS: Albumin 3.8 g/dL (3.2-5.2); Magnesium 1.7 mg/dL (1.9-2.7)
[2022-05-23 17:45] LABS: Albumin/Globulin Ratio 2.7 (1-3); C Reactive Protein 14.62 mg/L (<8.01); Globulin 1.4 g/dL (2-4); Total Protein 5.2 g/dL (6.4-8.9)
[2022-05-23 17:49] LABS: Calcium 8.7 mg/dL (8.6-10.3); Potassium 3.7 mmol/L (3.5-5.0); Total Bilirubin 0.7 mg/dL (0.2-1.0); eGFR CKD-EPI 61.7 (>60)
[2022-05-23 19:05] LABS: High Sensitivity Troponin 1 Hr 11 pg/mL (<15)
[2022-05-23] MEDS ORDERED: Levalbuterol HFA INHALER MDI INH PRN (19:57)
[2022-05-23] MEDS: cefTRIAXone 1 gm/50 mL D5W 1 GM/50 ML BAG IV SCH (21:48)
[2022-05-24 06:28] LABS: ABS Eosinophils 0.2 10^3/ul (0-0.6); ABS Lymphocytes 0.3 10^3/ul (1.0-4.8); ABS Monocytes 0.4 10^3/ul (0-0.8); Hematocrit 29 % (35-47); Hemoglobin 9.7 g/dL (12.0-16.0); Lymphocyte % 10.6 %; Mean Corpuscular HGB Conc 33 g/dL (31-36); Mean Corpuscular Hemoglobin 30 pg (27-31); Mean Corpuscular Volume 89 fL (80-97); Mean Platelet Volume 7.5 fL (7.4-10.4); Platelet Count 111 10^3/uL (150-450); Red Blood Count 3.29 10^6 /uL (3.70-4.87); Red Cell Distribution Width 16 % (10-15)
[2022-05-24 06:46] LABS: C Reactive Protein 21.59 mg/L (<8.01); Calcium 8.1 mg/dL (8.6-10.3); eGFR CKD-EPI 67.4 (>60)
[2022-05-24] MEDS ORDERED: SPIRIVA Respimat (tiotropium) 2.5 mcg/inh Inhaler INH SCH (09:00)
[2022-05-24] MEDS: Pravastatin 20 mg TAB (NF) PO SCH (09:04)
[2022-05-24] MEDS: CMCS: Entecavir 0.5 mg TAB (NF) PO SCH ×3 (09:04→11:23)
[2022-05-24] MEDS ORDERED: Albuterol/Ipratropium NEB.SOL (2.5/0.5 MG) 3 ML NEB.SOLN INH SCH (14:30)
[2022-05-24] MEDS: Levalbuterol HFA INHALER MDI INH SCH (19:18)
[2022-05-24] MEDS: Mometasone/Formoter 200/5 MDI INH SCH (19:24)
[2022-05-24] MEDS: cefTRIAXone 1 gm/50 mL D5W 1 GM/50 ML BAG IV SCH (20:18)
[2022-05-25 06:51] LABS: ABS Lymphocytes 0.3 10^3/ul (1.0-4.8); ABS Monocytes 0.3 10^3/ul (0-0.8); ABS Neutrophils 1.5 10^3/ul (1.5-7.7); Eosinophil % 0.2 %; Hematocrit 32 % (35-47); Hemoglobin 10.8 g/dL (12.0-16.0); Lymphocyte % 13.9 %; Mean Corpuscular HGB Conc 34 g/dL (31-36); Mean Corpuscular Hemoglobin 30 pg (27-31); Mean Corpuscular Volume 89 fL (80-97); Mean Platelet Volume 8.5 fL (7.4-10.4); Nucleated Red Blood Cells % 0.1; Platelet Count 127 10^3/uL (150-450); Red Blood Count 3.61 10^6 /uL (3.70-4.87); Red Cell Distribution Width 15 % (10-15); White Blood Count 2.2 10^3/uL (3.5-10.8)
[2022-05-25] MEDS: Pravastatin 20 mg TAB (NF) PO SCH (07:28)
[2022-05-25 07:30] LABS: Calcium 8.5 mg/dL (8.6-10.3); Magnesium 1.9 mg/dL (1.9-2.7); Potassium 3.8 mmol/L (3.5-5.0); eGFR CKD-EPI 81.9 (>60)
[2022-05-25] MEDS: Levalbuterol HFA INHALER MDI INH SCH ×3 (08:22→19:22)
[2022-05-25] MEDS: Mometasone/Formoter 200/5 MDI INH SCH ×2 (08:23→19:22)
[2022-05-25] MEDS: CMCS: Entecavir 0.5 mg TAB (NF) PO SCH (11:08)
[2022-05-25] MEDS: cefTRIAXone 1 gm/50 mL D5W 1 GM/50 ML BAG IV SCH (20:33)
[2022-05-26 05:26] LABS: ABS Eosinophils 0.1 10^3/ul (0-0.6); ABS Lymphocytes 0.6 10^3/ul (1.0-4.8); ABS Monocytes 0.6 10^3/ul (0-0.8); ABS Neutrophils 1.9 10^3/ul (1.5-7.7); Eosinophil % 1.7 %; Hematocrit 29 % (35-47); Hemoglobin 9.7 g/dL (12.0-16.0); Lymphocyte % 19.5 %; Mean Corpuscular HGB Conc 34 g/dL (31-36); Mean Corpuscular Hemoglobin 30 pg (27-31); Mean Corpuscular Volume 88 fL (80-97); Mean Platelet Volume 7.2 fL (7.4-10.4); Nucleated Red Blood Cells % 0.1; Platelet Count 130 10^3/uL (150-450); Red Blood Count 3.26 10^6 /uL (3.70-4.87); Red Cell Distribution Width 16 % (10-15); White Blood Count 3.1 10^3/uL (3.5-10.8)
[2022-05-26 06:40] LABS: Calcium 8.4 mg/dL (8.6-10.3); Potassium 3.5 mmol/L (3.5-5.0); eGFR CKD-EPI 76.1 (>60)
[2022-05-26] MEDS ORDERED: Potassium Chlor 20 meq TAB.ER PO ONE (07:29)
[2022-05-26] MEDS: Pravastatin 20 mg TAB (NF) PO SCH (08:40)
[2022-05-26] MEDS: Levalbuterol HFA INHALER MDI INH SCH ×2 (08:43→13:41)
[2022-05-26] MEDS: Mometasone/Formoter 200/5 MDI INH SCH (08:43)
[2022-05-26] MEDS: CMCS: Entecavir 0.5 mg TAB (NF) PO SCH (10:45)
[2022-05-26] MEDS ORDERED: Potassium Chlor 10 meq TAB PO ONE (11:00)
[2022-05-26 11:20] VITALS: BP 134/79
== END 2022-05-26 17:00 | disposition home health service (06) | DRG 189 ==
LOC: ED 15:13 → EDHOLD 15:13 → SUATTDRO 19:21 → MED 22:27 → SUATTDRO 05-25 17:17
PROVIDERS: ADMIT Internal Medicine; ATTEND Internal Medicine